=== PATIENT | male | born 1970 | race Two or more races ===

== ENCOUNTER 2020-12-24 12:30 | Emergency (ER) | payer BC ==
[~2020-12-24] VITALS: Ht 190.5 cm; Wt 87.1 kg
--- NOTE | 2020-12-24 13:42 | Emergency Room Report ---
History of Present Illness General Chief Complaint: Back Injury Source: Patient Present Illness HPI 50-year-old male with no signal past medical history here complaining of lower back pain that started after lifting something heavy last week exacerbated this morning after he bent down to put on his socks. Patient reports that 1 week ago he went to a chiropractor and felt better after adjustments. Denies any fall or injury. Denies any tingling numbness. Denies saddle paresthesia, urinary bowel incontinence. Has not taken medication for symptom relief other than Tylenol. Denies headache and dizziness, fever or chills. Has full range of motion of the lower back, denies any pain radiation. Denies tingling or numbness. Allergies: Coded Allergies: No Known Allergies (Unverified , 12/24/20) COVID-19 Screening Contact w/high risk pt: No Experienced COVID-19 symptoms?: No COVID-19 Testing performed [facility]UB FORMER: Yes COVID-19 Screening: Negative COVID-19 COVID-19 Testing Source: nasal Patient History Past Medical History: see triage record Past Surgical History: none Pertinent Family History: none Immunizations: UTD Reviewed Nursing Documentation: PMH: Agreed; PSxH: Agreed Nursing Documentation-PMH Past Medical History: No Stated History Review of Systems All Other Systems: negative except mentioned in HPI Physical Exam Vital Signs Date Time Temp Pulse Resp B/P (MAP) Pulse Ox O2 Delivery O2 Flow Rate FiO2 12/24/20 13:18 98.4 82 16 130/80 (97) 98 Room Air Sp02 EP Interpretation: reviewed, normal General Appearance: no apparent distress, alert, GCS 15, non-toxic Head: normocephalic, atraumatic Eyes: bilateral eye normal inspection, bilateral eye PERRL ENT: hearing grossly normal, normal pharynx, no angioedema, normal voice Neck: full range of motion, supple/symm/no masses Respiratory: no respiratory distress, no retraction, no accessory muscle use Cardiovascular #1: no edema, no murmur Cardiovascular #2: 2+ dorsalis pedis (R), 2+ dorsalis pedis (L) Gastrointestinal: soft, no organomegaly, no bruit Genitourinary: no CVA tenderness Musculoskeletal: back normal, no calf tenderness, pelvis stable, no lower extremity edema, non-tender Neurologic: alert, motor strength/tone normal, oriented x3, sensory intact, responsive, speech normal Psychiatric: judgement/insight normal, memory normal, mood/affect normal, no suicidal/homicidal ideation Skin: no rash Lymphatic: no adenopathy Medical Decision Making PA Attestation All diagnoses and treatment plans were reviewed and discussed with my supervising physician Dr. Wells Diagnostic Impression: Primary Impression: Lumbar spine strain ER Course 50-year-old male with no signal past medical history here complaining of lower back pain that started after lifting something heavy last week exacerbated this morning after he bent down to put on his socks. Patient reports that 1 week ago he went to a chiropractor and felt better after adjustments. Denies any fall or injury. Denies any tingling numbness. Denies saddle paresthesia, urinary bowel incontinence. Has not taken medication for symptom relief other than Tylenol. Denies headache and dizziness, fever or chills. Has full range of motion of the lower back, denies any pain radiation. Denies tingling or numbness. Ddx considered but are not limited to: Lumbar spine sprain, strain, fracture, contusion, neuropathy Vital signs: are WNL, pt. is afebrile H&PE are most consistent with: lumbar strain ORDERS: At this time no x-ray or CT needed advised patient to get MRI done if pain becomes chronic patient did not fall or injure himself was range of motion and did not palpate any bony tenderness. Robaxin, ibuprofen, lidocaine patch ER intervention: Toradol IM, Robaxin p.o., lidocaine patch DISCHARGE: At this time pt. is stable for d/c to home. Will provide printed patient care instructions, and any necessary prescriptions. Care plan and follow up instructions have been discussed with the patient prior to discharge. Patient take medication as directed, follow-up with primary doctor, worsening symptoms return to the emergency room Last Vital Signs Date Time Temp Pulse Resp B/P (MAP) Pulse Ox O2 Delivery O2 Flow Rate FiO2 12/24/20 13:18 98.4 82 16 130/80 (97) 98 Room Air Disposition: HOME, SELF-CARE Condition: Stable Scripts Lidocaine Patch* (Lidoderm Patch*) 1 Each Adh..patch 1 PATCH TOPIC DAILY, #30 PATCH Patch(es) may remain in place for up to 12 hours in any 24-hour period. Prov: Irene St 12/24/20 Ibuprofen (Ibu) 800 Mg Tablet 800 MG PO TID, #30 TAB Prov: Irene tS 12/24/20 Methocarbamol* (ROBAXIN-500*) 500 Mg Tablet 500 MG ORAL TID PRN for For Pain, #15 TAB 0 Refills Prov: Irene St 12/24/20 Patient Instructions: Lumbosacral Strain Additional Instructions: Take medication as directed, follow-up with your primary care provider, if worsening symptoms return to the emergency room. If this become chronic and more painful MRI of lower back recommended per request of your primary doctor. Irene St Dec 24, 2020 13:42
[2020-12-24] MEDS ORDERED: Ketorolac 30mg Inj IM ONE (13:45)
[2020-12-24] MEDS ORDERED: Methocarbamol 750mg tab ORAL ONE (13:45)
[2020-12-24] MEDS ORDERED: IBU800 MG PO (13:49)
[2020-12-24] MEDS ORDERED: LIDODERM700 M1 TOPIC (13:49)
[2020-12-24] MEDS ORDERED: ROBAXIN-500MG ORAL (13:49)
[2020-12-24 14:24] VITALS: BP 138/68
--- NOTE | 2020-12-24 14:27 | NUR ---
ER DISCHARGE NOTE: Patient is cleared to be discharged per ERMD, pt is aox4, on room air, with stable vital signs. pt was given dc and prescription instructions, pt was able to verbalize understanding, pt id band removed without complications. pt is able to ambulate with steady gait. pt took all belongings.
== END 2020-12-24 14:15 | disposition home or self-care (01) ==
LOC: EMR 13:47
DX: S39.012A Strain of muscle, fascia and tendon of lower back, initial encounter (principal); X50.0XXA Overexertion from strenuous movement or load, initial encounter; Y92.9 Unspecified place or not applicable
CPT/HCPCS: 96372; 99283; J1885